=== PATIENT | male | born 1980 | race Two or more races ===

== ENCOUNTER 2023-08-09 10:37 | Emergency (ER) | payer BC, OTHER ==
[~2023-08-09] VITALS: Ht 182.9 cm; Wt 110.0 kg
[2023-08-09 11:25] VITALS: BP 143/93; PULSE 76; RESP 18; TEMP 97.6; O2SAT 98
[2023-08-09 12:20] LABS: Basophils # (auto) 0 10 ^3/uL (0-0.2); Basophils % (auto) 0.2 % (0.0-2.0); Eosinophils # (auto) 0.1 10 ^3/uL (0-0.8); Eosinophils % (auto) 1.9 % (0.0-7.0); Hematocrit 41.2 % (41.0-53.0); Hemoglobin 13.9 g/dL (13.5-17.5); Lymphocytes # (auto) 1.5 10 ^3/uL (0.4-5.4); Lymphocytes % (auto) 20.6 % (10.0-50.0); Mean Corpuscular Hemoglobin 28.3 pg (28.0-32.0); Mean Corpuscular Hgb Conc. 33.8 g/dL (32.0-36.0); Mean Corpuscular Volume 83.7 fL (80.0-100.0); Monocytes # (auto) 0.7 10 ^3/uL (0-1.3); Monocytes % (auto) 10.2 % (0.0-12.0); Neutrophils # (auto) 4.8 10 ^3/uL (1.6-8.6); Neutrophils % (auto) 67.1 % (37.0-80.0); Red Blood Cells 4.92 10^6/uL (4.5-5.90); Red Cell Distribution Width 13.5 % (11.8-14.3); White Blood Cell 7.1 10^3/uL (4.4-10.8)
[2023-08-09 12:52] LABS: Alanine Aminotransferase 46 U/L (7-40); Albumin 4.4 g/dL (3.2-4.8); Alkaline Phosphatase 70 U/L (46-116); Anion Gap 7 (5-15); Aspartate Aminotransferase 32 U/L (13-40); BUN/Creatinine Ratio 10.3 (10.0-20.0); Bilirubin, Total 0.6 mg/dL (0.2-1.0); Blood Urea Nitrogen 13 mg/dL (9-23); Calcium 9.2 mg/dL (8.7-10.4); Carbon Dioxide 24 mmol/L (20-30); Chloride 109 mmol/L (98-107); Glucose 89 mg/dL (74-106); Potassium 4.2 mmol/L (3.5-5.1); Sodium 140 mmol/L (136-145); Total Protein 7.4 g/dL (5.7-8.2); Uric Acid 7.2 mg/dL (3.7-9.2)
[2023-08-09] MEDS ORDERED: ACE3T PO (13:17)
[2023-08-09] MEDS ORDERED: IBUP-1456 PO (13:17)
== END 2023-08-09 13:59 | disposition home or self-care (01) ==
LOC: ER 10:37
DX: M79.672 Pain in left foot (principal)
CPT/HCPCS: 36415; 73630; 80053; 84550; 85025